=== PATIENT | male | born 1985 | race Caucasian/White ===

== ENCOUNTER → 2017-01-27 | Outpatient (CLI) | payer OTHER | LOC: BMCIMAGING 17:10 | PROVIDERS: ATTEND Family Medicine | DX: S61.011A Laceration without foreign body of right thumb without damage to nail, initial encounter (principal); S61.212A Laceration without foreign body of right middle finger without damage to nail, initial encounter ==

== ENCOUNTER → 2017-05-02 | Outpatient (CLI) | payer OTHER | LOC: BMCIMAGING 17:30 | PROVIDERS: ATTEND Family Medicine | DX: J32.9 Chronic sinusitis, unspecified (principal) ==

== ENCOUNTER → 2017-06-29 | Outpatient (CLI) | payer OTHER | LOC: FIMAGING 15:08 | PROVIDERS: ATTEND Internal Medicine Infectious Disease | DX: R21 Rash and other nonspecific skin eruption (principal); M35.2 Behcet's disease; D84.9 Immunodeficiency, unspecified ==

== ENCOUNTER 2017-07-27 17:39 | Emergency (ER) | payer OTHER ==
--- NOTE | 2017-07-27 18:32 | EDPHY ---
H & P Stated Complaint: co of extreme fatigue and sores in hands and nasal. Worried about parasite Time Seen by Provider: 07/27/17 18:10 HPI/ROS: CHIEF COMPLAINT: "I'm fatigued" HISTORY OF PRESENT ILLNESS: 32-year-old male complaining of fatigue for the past 4 months. Has been sleeping more than usual. 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 He is currently staying with his parents. They have not been ill. No acute rashes. Denies acute symptoms. Denies acute skin lesions. Denies intraoral lesions. Denies ocular complaints. Denies GI complaints. Denies gait instability. Denies slurred speech. Denies headache. Denies nausea or vomiting. Denies sore throat. Denies URI symptoms. Denies cough. Denies dyspnea. Denies abdominal pain. REVIEW OF SYSTEMS: A ten point review of systems was performed and is negative with the exception of the items mentioned in the HPI PAST MEDICAL & SURGICAL HISTORY: Behcets. Anxiety. SOCIAL HISTORY: Nonsmoker. No drug use. PHYSICAL EXAM (Prior to examination, patient consented to physical exam, hands were washed and my usual and customary physical exam procedures followed) 1) GENERAL: Well-developed, well-nourished, alert and oriented. Appears to be in no acute distress. Answering questions appropriately. Smiling. Comp cooperative. 2) HEAD: Normocephalic, atraumatic 3) HEENT: Pupils equal, round, reactive to light bilaterally. Sclera anicteric. Nasopharynx, oropharynx, clear, no lesions. No ulcers. Ears bilaterally with normal tympanic membranes. 4) NECK: Full range of motion, no meningeal signs. 5) LUNGS: Clear auscultation bilaterally, no wheezes, no rhonchi, no retractions. 6) HEART: Regular rate and rhythm, no murmur, no heave, no gallop. 7) ABDOMEN: No guarding, no rebound, no focal tenderness, negative McBurney's, negative Pavon's, negative Rovsing's, negative peritoneal sign, no splenomegaly 8) MUSCULOSKELETAL: The patient's bilateral pretibial region he has multiple subacute lesions. Numbness signs of infection. Bilateral great toes are examined, no signs of infection, no signs of paronychia, no signs of cellulitis. Moving all extremities, no focal areas of tenderness, no obvious trauma. No peripheral edema or discoloration. 9) BACK: No CVA tenderness, no midline vertebral tenderness, no fluctuance, no step-off, no obvious trauma, no visual or palpable abnormality. 10) SKIN: No rash, no petechiae. 11) Psychiatric: Patient is oriented X 3, there is no agitation. 12) NEURO: Awake, alert, and oriented to person, place and time. Answers questions appropriately. There were no obvious focal neurologic abnormalities. No cerebellar dysfunction. Cranial nerves 2 through to 12 intact. Normal steady gait. Upper and lower extremities bilaterally with strength 5 / 5, reflexes 2+. DIFFERENTIAL DIAGNOSIS: No particular include but limited to endocrine etiology, hematologic etiology, psychiatric etiology - Personal History Current Tetanus Diphtheria and Acellular Pertussis (TDAP): Yes Tetanus Vaccine Date: 2010 - Medical/Surgical History Hx Asthma: No Hx Chronic Respiratory Disease: No Hx Diabetes: No Hx Cardiac Disease: No Hx Renal Disease: No Hx Cirrhosis: No Hx Alcoholism: No Hx HIV/AIDS: No Hx Splenectomy or Spleen Trauma: No Other PMH: pne, BICHETTES (autoimmune)/CHRONIC PAIN, anxiety,depression, insomnia. ortho surgeries, infection in left hand with i &d - Social History Smoking Status: Never smoked Constitutional: Initial Vital Signs Temperature (C) 36.6 C 07/27/17 17:42 Heart Rate 97 07/27/17 17:42 Respiratory Rate 16 07/27/17 17:42 Blood Pressure 109/73 07/27/17 17:42 O2 Sat (%) 98 07/27/17 17:42 O2 Delivery Mode Room Air Allergies/Adverse Reactions: No Known Allergies Allergy (Verified 07/27/17 17:41) Home Medications: Medication Instructions Recorded Folic Acid [Folic Acid 1 MG (*)] 2 mg PO DAILY 01/08/12 Pregabalin [Lyrica] 150 mg PO HS 07/26/15 TESTOSTERONE [Androgel 1.62% pump] 2 kaveh TD DAILY 07/26/15 ALPRAZolam [Xanax 1 MG (*)] 1 mg PO HS PRN #0 tab 06/01/16 DESVENLAFAXINE SUCCINATE [PRISTIQ] 07/27/17 Medical Decision Making ED Course/Re-evaluation: 6:31 p.m.: I have evaluated the patient. He currently appears well, has a nonfocal exam. I reviewed his prior laboratory results and medical records with him including his negative arthropod the identification warm identification studies as well as negative stool ova and parasite studies. Will obtain EKG and blood work on the patient. 7:39 p.m. Re-evaluation with serial examinations most recently at this time. He continues to appear well. The specific etiology for his ongoing fatigue he is incompletely clear at this time. He is able to tolerate oral intake, has no intraoral lesions or GI symptoms. I have stressed the importance of follow-up. At this time I do not identify indication for further diagnostic studies from the emergency department. His TSH is pending and this can be followed up by his primary care provider. He feels comfortable being discharged. Usual and customary discharge precautions and instructions provided to the patient. Care of patient under supervision of secondary supervising physician Dr Alexandra . - Data Points Laboratory Results: Laboratory Results 07/27/17 19:00 07/27/17 19:00 07/27/17 07/27/17 07/27/17 19:00 19:00 19:00 WBC 5.47 10^3/uL 10^3/uL (3.80-9.50) RBC 4.83 10^6/uL 10^6/uL (4.40-6.38) Hgb 15.0 g/dL g/dL (13.7-17.5) Hct 41.4 % % (40.0-51.0) MCV 85.7 fL fL (81.5-99.8) MCH 31.1 pg pg (27.9-34.1) MCHC 36.2 g/dL g/dL (32.4-36.7) RDW 12.8 % % (11.5-15.2) Plt Count 185 10^3/uL 10^3/uL (150-400) MPV 11.1 fL fL (8.7-11.7) Neut % (Auto) 58.9 % % (39.3-74.2) Lymph % (Auto) 32.0 % % (15.0-45.0) [place] % (Auto) 8.0 % % (4.5-13.0) Eos % (Auto) 0.2 % L % (0.6-7.6) Baso % (Auto) 0.7 % % (0.3-1.7) Nucleat RBC Rel Count 0.0 % % (0.0-0.2) Absolute Neuts (auto) 3.22 10^3/uL 10^3/uL (1.70-6.50) Absolute Lymphs (auto) 1.75 10^3/uL 10^3/uL (1.00-3.00) Absolute Monos (auto) 0.44 10^3/uL 10^3/uL (0.30-0.80) Absolute Eos (auto) 0.01 10^3/uL L 10^3/uL (0.03-0.40) Absolute Basos (auto) 0.04 10^3/uL 10^3/uL (0.02-0.10) Absolute Nucleated RBC 0.00 10^3/uL 10^3/uL (0-0.01) Immature Gran % 0.2 % % (0.0-1.1) Immature Gran # 0.01 10^3/uL 10^3/uL (0.00-0.10) Sodium 139 mEq/L mEq/L (135-145) Potassium 4.1 mEq/L mEq/L (3.5-5.2) Chloride 104 mEq/L mEq/L (97-110) Carbon Dioxide 25 mEq/l mEq/l (22-31) Anion Gap 10 mEq/L mEq/L (8-16) BUN 14 mg/dL mg/dL (7-23) Creatinine 0.9 mg/dL mg/dL (0.7-1.3) Estimated GFR > 60 Glucose 74 mg/dL mg/dL (70-100) Calcium 9.0 mg/dL mg/dL (8.5-10.4) TSH Pending Monoscreen NEGATIVE (NEGATIVE) Departure - Departure Disposition: Home, Routine, Self-Care Clinical Impression: Fatigue Qualifiers: Fatigue type: other Qualified Code(s): R53.83 - Other fatigue Condition: Good Instructions: Fatigue (ED) Additional Instructions: Return to the ER if you develop new or worsening symptoms, if you develop dizziness, lightheadedness or any other symptoms that concern you. Referrals: Follow-up, with your primary care provider in 5-7 days [Other] - As per Instructions
--- NOTE | 2017-07-27 18:53 | CPEKG ---
Heart Rate: 80 RR Interval: 750 P-R Interval: 140 QRSD Interval: 92 QT Interval: 364 QTC Interval: 420 P [place]: 47 QRS [place]: 64 T Wave [place]: 50 EKG Severity - NORMAL ECG - EKG Impression: SINUS RHYTHM Electronically Signed By: Ankita Alexandra 27-Jul-2017 23:09:51
[2017-07-27 19:13] LABS: PLATELET COUNT 185 10^3/uL (150-400)
[2017-07-27 19:46] VITALS: BP 129/84
== END 2017-07-27 19:46 | disposition home or self-care (01) ==
DX: R53.83 Other fatigue (principal)

== ENCOUNTER 2017-08-02 10:53 | Emergency (ER) | payer OTHER ==
[2017-08-02] MEDS ORDERED: LORazepam 2 MG/ML INJ IVP ONE ×2 (11:03→12:03)
--- NOTE | 2017-08-02 11:26 | EDPHY ---
H & P Smoking Status: Never smoked Time Seen by Provider: 08/02/17 10:56 HPI/ROS: CHIEF COMPLAINT: "I am so tired" HISTORY OF PRESENT ILLNESS: 32-year-old male arrives via ambulance for complaints of fatigue and anxiety. States that he had difficulty waking up secondary to if he can then developed acute anxiety attack and did not have sufficient Xanax with him. He has been evaluated in the ER previously, most recently by myself 6 days ago for complaints of fatigue at which point laboratory studies were obtained which were all generally within normal limits. He has a history of Behcets syndrome but denies acute GI or oral symptoms. REVIEW OF SYSTEMS: A ten point review of systems was performed and is negative with the exception of the items mentioned in the HPI PAST MEDICAL & SURGICAL HISTORY: Behcets syndrome SOCIAL HISTORY: Nonsmoker PHYSICAL EXAM (Prior to examination, patient consented to physical exam, hands were washed and my usual and customary physical exam procedures followed) 1) GENERAL: Well-developed, well-nourished, alert and oriented. He appears anxious. 2) HEAD: Normocephalic, atraumatic 3) HEENT: Pupils equal, round, reactive to light bilaterally. Sclera anicteric. Nasopharynx, oropharynx, clear, no lesions. 4) NECK: Full range of motion, no meningeal signs. 5) LUNGS: Clear auscultation bilaterally, no wheezes, no rhonchi, no retractions. 6) HEART: Regular rate and rhythm, no murmur, no heave, no gallop. 7) ABDOMEN: No guarding, no rebound, no focal tenderness, negative McBurney's, negative Pavon's, negative Rovsing's, negative peritoneal sign, 8) MUSCULOSKELETAL: Moving all extremities, no focal areas of tenderness, no obvious trauma. No peripheral edema or discoloration. 9) BACK: No CVA tenderness, no midline vertebral tenderness, no fluctuance, no step-off, no obvious trauma, no visual or palpable abnormality. 10) SKIN: No rash, no petechiae. 11) Psychiatric: Patient is oriented X 3, there is no agitation. 12) NEURO: Awake, alert, and oriented to person, place and time. Answers questions appropriately. There were no obvious focal neurologic abnormalities. No cerebellar dysfunction. Cranial nerves 2 through to 12 intact. Normal steady gait. Upper and lower extremities bilaterally with strength 5 / 5, reflexes 2+. DIFFERENTIAL DIAGNOSIS: In no particular include but limited to acute anxiety reaction, somatization, endocrinologic etiology (John Lockwood Kathi) Constitutional: Initial Vital Signs Temperature (C) 36.8 C 08/02/17 10:56 Heart Rate 84 08/02/17 10:56 Respiratory Rate 16 08/02/17 10:56 Blood Pressure 145/120 H 08/02/17 10:56 O2 Sat (%) 100 08/02/17 10:56 O2 Delivery Mode Room Air Allergies/Adverse Reactions: No Known Allergies Allergy (Verified 08/02/17 10:56) Home Medications: Medication Instructions Recorded Folic Acid [Folic Acid 1 MG (*)] 2 mg PO DAILY 01/08/12 Pregabalin [Lyrica] 150 mg PO HS 07/26/15 TESTOSTERONE [Androgel 1.62% pump] 2 kaveh TD DAILY 07/26/15 ALPRAZolam [Xanax 1 MG (*)] 1 mg PO HS PRN #0 tab 08/20/15 DESVENLAFAXINE SUCCINATE [PRISTIQ] 07/27/17 MDM/Departure - MDM Medications Given: Discontinued Medications Lorazepam (Ativan Injection) 1 mg IVP EDNOW ONE Stop: 08/02/17 11:04 Last Admin: 08/02/17 11:09 Dose: 1 mg Lorazepam (Ativan Injection) 1 mg IVP EDNOW ONE Stop: 08/02/17 12:04 Last Admin: 08/02/17 12:07 Dose: 1 mg ED Course/Re-evaluation: 11:00 a.m.: This patient appears acutely anxious. Will administer IV benzodiazepine and re-evaluated. At this time I do not think that repeat laboratory studies are indicated given his recent emergency department evaluation at 6 days ago for fatigue. 12:04 p.m.: Re-evaluation, complaining of continued anxiety. Will administer further benzodiazepine. 12:58 p.m.: Re-evaluation (John Lockwood Kathi) I did not see this patient while he was in the emergency department. However his care was discussed with the PA while the patient was in the department. I agree with treatment plan and management (Carlos Plata) - Depart Disposition: Home, Routine, Self-Care Clinical Impression: Anxiety Condition: Good Instructions: Anxiety (ED) Additional Instructions: Return to the ER if you develop new or worsening symptoms, shortness of breath, trouble walking or any other symptoms concern you Referrals: Follow-up, with your primary care provider in 1-2 days [Other] - As per Instructions
[2017-08-02 12:58] VITALS: BP 110/76
== END 2017-08-02 13:07 | disposition home or self-care (01) ==
LOC: EDUNIT#
DX: F41.9 Anxiety disorder, unspecified (principal)
CPT/HCPCS: 96374; J2060

== ENCOUNTER 2017-09-21 18:43 | Emergency (ER) | payer OTHER ==
--- NOTE | 2017-09-21 19:39 | EDPHY ---
H & P Smoking Status: Never smoked Time Seen by Provider: 09/21/17 18:54 HPI/ROS: CHIEF COMPLAINT: Left foot pain, open sores HISTORY OF PRESENT ILLNESS: 32-year-old male with a known history of Behcet's disease presents to the emergency department by private vehicle with concerns about ongoing pain in his left foot with open sores. The patient denies any known trauma or injury. He states over last 6 weeks or so he has had open sores all over his body for no explainable reason. He states over last 3 weeks he has had what initially appeared to be blistering lesions isolated to the left 4th toe which have now since erupted and the skin has sloughed off. He has no pain associated with the left 4th toe but rather pain in the dorsal aspect of his left foot radiating up into his left ankle. No fevers or chills. The reason he came into the emergency department this evening is because he has felt worsening fatigue and more pain in his left foot. Denies any other rash. He was in [place] recently and was started on Augmentin which she just finished 4 5 days ago. He had no improvement of his symptoms since taking that medication. No pain in his chest or difficulty breathing. He used to take methotrexate and Remicade for Bechet's disease up until December of 2016. He stop this medication because he was having frequent sinus infections and he was told to stop the medication so his immune system could fight the infections. He has not restarted the medication. REVIEW OF SYSTEMS: Constitutional: No fever, no chills. Eyes: No double or blurry vision. ENT: No sore throat. Respiratory: No cough, no shortness of breath. Cardiac: No chest pain. Gastrointestinal: No abdominal pain, vomiting or diarrhea. Genitourinary: No dysuria. Musculoskeletal: No neck or back pain. Skin: No rashes. Neurological: No headache. (Leatha Amanda M) Past Medical/Surgical History: Bechet's disease, left ankle surgery (Treasure,Leatha M) Social History: Single and lives in [place] (Treasure,Leatha M) Physical Exam: General Appearance: Alert, no distress. Initial blood pressure 95/65, heart rate 116, afebrile. Blood pressure upon my examination 108/76, heart rate 102 98% on room air. Eyes: Pupils equal and round. Extraocular motions are all intact. ENT: Mouth: Mucous membranes moist. Respiratory: No wheezing, rhonchi, or rales, lungs are clear to auscultation. Cardiovascular: Regular rate and rhythm. Gastrointestinal: Abdomen is soft and nontender, no masses, no rebound or guarding, bowel sounds normal. Neurological: Alert and oriented x 3, cranial nerves II through XII grossly intact Skin: Multiple areas of excoriation in various stages of healing throughout his body. There is an open excoriated wound to the anterior medial aspect of the right leg with no purulent drainage. No vesicles. No surrounding redness or signs of cellulitis. Left great toe appears to be ingrown in the medial aspect. It is mildly tender to palpate. No purulent drainage. The left 4th toe reveals skin sloughing which is not circumferential but just isolated to the anterior part of his toe. The nail has been completely avulsed. No active bleeding noted. Full range of motion of his toes. There is some mild redness noted to the base of his toes on the left foot on the dorsal aspect. There is no lymphangitis. Full range of motion of the left ankle. Well-healed surgical incision noted to the lateral aspect of the left ankle. Musculoskeletal: Nontender to palpate along the cervical, thoracic or lumbar spine. Neck is supple. Extremities: Full range of motion and no peripheral edema. Psychiatric: Patient is oriented X 3, there is no agitation. (Leatha Amanda) Constitutional: Initial Vital Signs Heart Rate 116 H 09/21/17 18:50 Respiratory Rate 16 09/21/17 18:50 Blood Pressure 95/65 L 09/21/17 18:50 O2 Sat (%) 95 09/21/17 18:50 O2 Delivery Mode Room Air Allergies/Adverse Reactions: No Known Allergies Allergy (Verified 09/21/17 18:57) Home Medications: Medication Instructions Recorded Folic Acid [Folic Acid 1 MG (*)] 2 mg PO DAILY 01/08/12 DESVENLAFAXINE SUCCINATE [PRISTIQ] 07/27/17 Doxycycline Hyclate [Doxycycline] 100 mg PO BID #20 cap 09/21/17 Tapentadol HCl [Nucynta 50 MG (*)] 50 mg PO 09/21/17 clonazePAM [klonoPIN (*)] 1 mg PO 09/21/17 oxyCODONE HCL [Oxycontin] 60 mg PO 09/21/17 oxyCODONE/APAP 5/325 [Percocet 1 - 2 tab PO Q4-6PRN PRN #15 tab 09/21/17 5/325] Medical Decision Making - Diagnostics Imaging: I viewed and interpreted images myself - Diagnostics Imaging Results: Imaging Impressions Foot X-Ray 09/21/17 19:26 Impression: Negative for fracture or other acute osseous abnormality.. ED Course/Re-evaluation: This patient was also seen examined by Dr. Yosvany Venegas. Laboratory studies are all unremarkable including normal white blood cell count and normal lactate. X-rays revealed no signs of osteomyelitis. Patient has a history of Bechet's disease. He has been off of his immunosuppressant medication since December 2016. Dr. Yosvany Venegas advised that the patient follow up with account services specialist, Dr. Ishan Encinas. Also advised that he start doxycycline 100 mg twice daily for 10 days for possible staph coverage. He does state that when he took the Augmentin he thought that the swelling and pain had improved somewhat. Patient was instructed to return if he developed fever, increasing pain, lymphangitis, or if he seems worse in any way. The patient was comfortable with this plan. The patient initially had a blood pressure of 95/60 with a heart rate of 114 when he arrived in the emergency department. Since that time he has been monitored blood pressure was 108/75 with a heart rate of 89. I do not think this patient is septic. He has a normal lactate. He is afebrile. (Leatha Amanda) Differential Diagnosis: Including but not limited to cellulitis, osteomyelitis, sepsis, Bechet's disease , vasculitis (Leatha Amanda) Other Provider: Ingris5: I assessed this patient at the request of LEE Rao. This patient does see a Bechet's specialist in [place] [address] who prescribes him Methotrexate and Remicade which he stopped last fall after a sinus infection. He is having pain and redness of his left 4th toe that is radiating to his mid foot. He was placed on antibiotics with minor improvement of symptoms. After stopping the antibiotics the symptoms worsened and he is concerned about losing the toe. On exam the left 4th toe is necrotic, not infectious as the area of redness is circumferential and there is sloughing of the skin. He should restart his immunosuppressants and follow up with a account services specialist. (Yosvany Venegas) - Data Points Laboratory Results: Laboratory Results 09/21/17 19:47 09/21/17 19:47 09/21/17 09/21/17 09/21/17 19:47 19:47 19:47 WBC 5.87 10^3/uL 10^3/uL (3.80-9.50) RBC 4.51 10^6/uL 10^6/uL (4.40-6.38) Hgb 14.0 g/dL g/dL (13.7-17.5) Hct 39.4 % L % (40.0-51.0) MCV 87.4 fL fL (81.5-99.8) MCH 31.0 pg pg (27.9-34.1) MCHC 35.5 g/dL g/dL (32.4-36.7) RDW 13.2 % % (11.5-15.2) Plt Count 201 10^3/uL 10^3/uL (150-400) MPV 11.1 fL fL (8.7-11.7) Neut % (Auto) 70.3 % % (39.3-74.2) Lymph % (Auto) 19.8 % % (15.0-45.0) [place] % (Auto) 8.9 % % (4.5-13.0) Eos % (Auto) 0.0 % L % (0.6-7.6) Baso % (Auto) 0.5 % % (0.3-1.7) Nucleat RBC Rel Count 0.0 % % (0.0-0.2) Absolute Neuts (auto) 4.13 10^3/uL 10^3/uL (1.70-6.50) Absolute Lymphs (auto) 1.16 10^3/uL 10^3/uL (1.00-3.00) Absolute Monos (auto) 0.52 10^3/uL 10^3/uL (0.30-0.80) Absolute Eos (auto) 0.00 10^3/uL L 10^3/uL (0.03-0.40) Absolute Basos (auto) 0.03 10^3/uL 10^3/uL (0.02-0.10) Absolute Nucleated RBC 0.00 10^3/uL 10^3/uL (0-0.01) Immature Gran % 0.5 % % (0.0-1.1) Immature Gran # 0.03 10^3/uL 10^3/uL (0.00-0.10) VBG Lactic Acid 1.5 mmol/L mmol/L (0.7-2.1) Sodium 138 mEq/L mEq/L (135-145) Potassium 4.0 mEq/L mEq/L (3.3-5.0) Chloride 107 mEq/L mEq/L (97-110) Carbon Dioxide 25 mEq/l mEq/l (22-31) Anion Gap 6 mEq/L L mEq/L (8-16) BUN 18 mg/dL mg/dL (7-23) Creatinine 0.9 mg/dL mg/dL (0.7-1.3) Estimated GFR > 60 Glucose 92 mg/dL mg/dL (70-100) Calcium 9.1 mg/dL mg/dL (8.5-10.4) Medications Given: Discontinued Medications Doxycycline Hyclate (Doxycycline Hyclate) 100 mg PO EDNOW ONE PRN Reason: Protocol Stop: 09/21/17 20:38 Last Admin: 09/21/17 20:40 Dose: 100 mg Oxycodone/Acetaminophen (Percocet 5/325mg Prepack#4) 1 btl TAKEHOME EDNOW ONE Stop: 09/21/17 20:52 Last Admin: 09/21/17 20:56 Dose: 1 btl Departure - Departure Disposition: Home, Routine, Self-Care Clinical Impression: Wound infection Condition: Good Instructions: Oxycodone/Acetaminophen (By mouth), Wound Infection (ED) Additional Instructions: Doxycycline twice daily for 10 days as discussed. Caution this medication can make you very sensitive to the sun. Follow-up with account services specialist, Dr. Ishan Encinas. Tell them that you were seen in the emergency department and Dr. Yosvany Venegas evaluated you and request that you see him for follow-up. Return to the emergency department if you develop fever, pain, swelling, or if you feel worse in any way. Referrals: Ishan Encinas MD [[facility] Primary Care Provider] - 2-3 days without fail ( [employer]) Prescriptions: Doxycycline Hyclate [Doxycycline] 100 mg PO BID #20 cap oxyCODONE/APAP 5/325 [Percocet 5/325] 1 - 2 tab PO Q4-6PRN PRN #15 tab PRN Reason: For Moderate To Severe Pain
[2017-09-21 20:02] LABS: PLATELET COUNT 201 10^3/uL (150-400)
[2017-09-21] MEDS ORDERED: DOXYCYCLINE HYCLATE 100 MG CAP/TAB PO ONE (20:37)
[2017-09-21 20:41] VITALS: BP 100/75
[2017-09-21] MEDS ORDERED: OXYCODONE/APAP 5/325MG PREPACK#4 BTL TAKEHOME ONE (20:51)
== END 2017-09-21 21:04 | disposition home or self-care (01) ==
DX: L08.9 Local infection of the skin and subcutaneous tissue, unspecified (principal)

== ENCOUNTER 2018-06-08 20:22 | Emergency (ER) | payer OTHER ==
--- NOTE | 2018-06-08 22:26 | EDPHY ---
H & P Stated Complaint: sores on L arm, R leg. sent from for IV antibiotics Time Seen by Provider: 06/08/18 21:51 HPI/ROS: Chief Complaint: Arm and leg lesions HPI: 33-year-old male with a history of chronic lesions on his extremities is presenting after being sent from urgent care for evaluation. Patient seen at Urgent Care today. Patient states that he has his chronic lesions but had new to new eruptions on his left forearm today. He has been followed by Yosvany Adame from Infectious Disease, last saw him in clinic about a month and half ago. He has a history of but shots disease. Did not improve on steroids in the past. He is being followed by his butcher all round. He has also seen Dermatology. So far he has not had a diagnosis of the cause. Apparently he works for the [employer] but has not been able lab rate a where he has traveled or any other exposures. Denies any fevers or chills. No headache. No nausea or vomiting. He has rashes have been occurring for the last year. During my evaluation I did note that the patient has been itching the several parts of his body. ROS: 10 systems were reviewed and were negative except those elements noted in the HPI. PMH: Bachett's disease Social History: No smoking, no alcohol, no recreational drug use Family History: non-contributory Physical Exam: Gen: Awake, Alert, No Distress HEENT: Nose: no rhinorrhea Eyes: PERRLA, EOMI Mouth: Moist mucosa Neck: Supple, no JVD Chest: nontender, lungs clear to auscultation Heart: S1, S2 normal, no murmur Abd: Soft, non-tender, no guarding Back: no CVA tenderness, no midline tenderness Ext: Multiple lesions which are erythematous almost a plaque which are well- circumscribed. Non confluent. On his bilateral upper lower extremities, primary in the left forearm. There are couple every skull radiations on his left forearm. Does not appear cellulitic. They are not confluent. They are not warm to touch. Skin: no rash Neuro: CN II-XII intact, Sensation grossly intact, Strength 5/5 in bilateral upper and lower extremities - Personal History Current Tetanus/Diphtheria Vaccine: Yes Current Tetanus Diphtheria and Acellular Pertussis (TDAP): Yes Tetanus Vaccine Date: 2010 - Medical/Surgical History Hx Asthma: No Hx Chronic Respiratory Disease: No Hx Diabetes: No Hx Cardiac Disease: No Hx Renal Disease: No Hx Cirrhosis: No Hx Alcoholism: No Hx HIV/AIDS: No Hx Splenectomy or Spleen Trauma: No Other PMH: pne, BICHETTES (autoimmune)/CHRONIC PAIN, anxiety,depression, insomnia. ortho surgeries, infection in left hand with i &d - Social History Smoking Status: Never smoked Constitutional: Initial Vital Signs Temperature (C) 36.6 C 06/08/18 20:31 Heart Rate 91 06/08/18 20:31 Respiratory Rate 18 06/08/18 20:31 Blood Pressure 125/79 H 06/08/18 20:31 O2 Sat (%) 97 06/08/18 20:31 O2 Delivery Mode Room Air Allergies/Adverse Reactions: No Known Allergies Allergy (Verified 06/08/18 20:30) Home Medications: Medication Instructions Recorded Folic Acid [Folic Acid 1 MG (*)] 2 mg PO DAILY 01/08/12 DESVENLAFAXINE SUCCINATE [PRISTIQ] 07/27/17 clonazePAM [klonoPIN (*)] 1 mg PO 09/21/17 oxyCODONE HCL [Oxycontin] 60 mg PO 09/21/17 Medical Decision Making ED Course/Re-evaluation: 33-year-old male presenting with acute her options of chronic skin lesions of unknown etiology. He was sent here by urgent care. I have discussed with Dr. Lino, infectious Disease. I have sent him pictures of the lesions. He has reviewed these. He does not feel that these appear cellulitic. Does not think that acute IV antibiotics or admission ring indicated. He would like to see the patient in clinic tomorrow. ID clinic will call the patient to arrange for an appointment. I have discussed with the patient. He understands the plan. He uses plan for discharge and will follow up with Infectious Disease tomorrow. Patient is certainly not at all toxic in appearance and is otherwise well. Departure - Departure Disposition: Home, Routine, Self-Care Clinical Impression: Rash Condition: Good Instructions: Acute Rash (ED) Additional Instructions: Follow up in the Infectious Disease Clinic tomorrow. They will call you in the morning to arrange for an appointment. If you do not receive a call call them to make arrangements to be seen that day. Referrals: Bryce Lino MD [Medical Doctor] - As per Instructions
[2018-06-08 22:45] VITALS: BP 141/86
== END 2018-06-08 22:44 | disposition home or self-care (01) ==
DX: L98.9 Disorder of the skin and subcutaneous tissue, unspecified (principal); M35.2 Behcet's disease